=== PATIENT | female | born 1970 | race Hispanic/Latino ===

== ENCOUNTER 2020-01-03 23:10 | Emergency (ER) | payer SELFPAY ==
[~2020-01-03] VITALS: Ht 162.6 cm; Wt 63.5 kg
[2020-01-03] MEDS ORDERED: SODIUM CHLORIDE 0.9% 1000ML 1,000 ML IV STA (23:21)
[2020-01-03] MEDS ORDERED: KETOROLAC TROMETHAMINE 30 MG/ML VIAL IV STA (23:22)
[2020-01-03] MEDS ORDERED: FENTANYL CITRATE/PF 100MCG/2 ML INJ IV ONE (23:30)
[2020-01-03 23:32] LABS: BASOPHILS # (AUTO) 0.1 (0.0-0.1); BASOPHILS % 0.4 % (0.0-1.0); EOSINOPHILS # (AUTO) 0.1 (0.0-0.4); EOSINOPHILS % 0.8 % (0.0-6.0); HEMATOCRIT 41.8 % (34.2-44.1); HEMOGLOBIN 14.3 g/dL (12.0-16.0); LYMPHOCYTES # (AUTO) 5.6 (1.0-3.2); LYMPHOCYTES % 40.1 % (18.0-39.1); MEAN CORPUSCULAR HGB CONC 34.2 g/dL (31-35); MEAN CORPUSCULAR VOLUME 96.5 fL (81-99); MONOCYTES # (AUTO) 0.9 (0.2-0.8); MONOCYTES % 6.6 % (4.4-11.3); NEUTROPHILS # (AUTO) 7.2 (2.1-6.9); NEUTROPHILS % 51.5 % (38.7-80.0); PLATELET COUNT 347 x10e3/uL (140-360); RED BLOOD COUNT 4.33 x10e6/uL (3.6-5.1); RED CELL DISTRIBUTION WIDTH 13.7 % (11.7-14.4)
[2020-01-03 23:34] LABS: BILIRUBIN,URINE NEGATIVE (NEGATIVE); CLARITY,URINE CLOUDY (CLEAR); COLOR,URINE YELLOW (YELLOW); KETONES,URINE NEGATIVE (NEGATIVE); LEUKOCYTE ESTERASE ,URINE NEGATIVE (NEGATIVE); NITRITE,URINE NEGATIVE (NEGATIVE); PROTEIN,URINE DIPSTICK NEGATIVE (NEGATIVE); URINE UROBILINOGEN 0.2 mg/dL (0.2 - 1)
[2020-01-03] MEDS: ONDANSETRON HCL INJ 2MG/ML 2ML 2 MG/ML VIAL IV PRN ×2 (23:34→23:39)
[2020-01-03] MEDS ORDERED: KETOROLAC TROMETHAMINE 30 MG/ML VIAL ONE (23:36)
[2020-01-03] MEDS ORDERED: FENTANYL CITRATE/PF 100MCG/2 ML INJ ONE (23:36)
[2020-01-03] MEDS ORDERED: ONDANSETRON HCL INJ 2MG/ML 2ML 2 MG/ML VIAL ONE (23:36)
--- NOTE | 2020-01-03 23:36 | Emergency Department Note ---
History of Present Illnes History of Present Illness Chief Complaint: Abdominal Complaints History of Present Illness This is a 49 year old Other female Chief Complaint Comment 49 y/o female pt [id number] reports generalized abdominal pain following bowel movement approx 25 minutes. Denies history or chance of STD. Historian: Patient, Family Member Arrival Mode: Car Forming Department End Finder Required: No Onset (how long ago): minute(s) (25) Location: Lower pelvis Quality: sharp Radiation: Reports flank (Right) Severity: severe Onset quality: sudden Duration (how long): hour(s) (1) Timing of current episode: constant Progression: worsening Chronicity: new Context: Denies recent illness, Denies recent surgery Relieving factors: none Exacerbating factors: none Associated symptoms: Reports denies other symptoms Treatments prior to arrival: none Past Medical/Family History Physician Review I have reviewed the patient's past medical and family history. Any updates have been documented here. Past Medical History Recent Fever: No Clinical Suspicion of Infectio: No New/Unexplained Change in Ment: No Past Medical History: None Past Surgical History: None Social History Physically hurt or threatened: No Other Last Tetanus: OOD Review of Systems Review of Systems Constitutional: Reports no symptoms EENTM: Reports no symptoms Cardiovascular: Reports no symptoms Respiratory: Reports no symptoms Gastrointestinal: Reports as per HPI, Reports abdominal pain Genitourinary: Reports no symptoms Musculoskeletal: Reports no symptoms Integumentary: Reports no symptoms Neurological: Reports no symptoms Psychological: Reports no symptoms Endocrine: Reports no symptoms Hematological/Lymphatic: Reports no symptoms Physical Exam Related Data Allergies: Coded Allergies: No Known Drug Allergies (Verified Allergy, Mild, 04/10/10) Triage Vital Signs Vital Signs Date Time Temp Pulse Resp B/P (MAP) Pulse Ox O2 Delivery O2 Flow Rate FiO2 01/03/20 23:12 98.6 104 18 159/101 97 Room Air Vital signs reviewed: Yes Physical Exam CONSTITUTIONAL Constitutional: Present well-developed, Present well-nourished, Present distressed HENT HENT: Present normocephalic, Present atraumatic, Present oropharynx clear/moist, Present nose normal HENT L/R: Present left ext ear normal, Present right ext ear normal EYES Eyes: Reports PERRL, Reports conjunctivae normal NECK Neck: Present ROM normal PULMONARY Pulmonary: Present effort normal, Present breath sounds normal CARDIOVASCULAR Cardiovascular: Present regular rhythm, Present heart sounds normal, Present capillary refill normal, Present normal rate GASTROINTESTINAL Abdominal: Present soft, Present bowel sounds normal, Present tender (Diffuse) GENITOURINARY Genitourinary: Present exam deferred SKIN Skin: Present warm, Present dry MUSCULOSKELETAL Musculoskeletal: Present ROM normal NEUROLOGICAL Neurological: Present alert, Present oriented x 3, Present no gross motor or sensory deficits PSYCHOLOGICAL Psychological: Present mood/affect normal, Present judgement normal Results Laboratory Laboratory Laboratory Tests Test 01/03/20 23:16 Procedures 12 Lead ECG Interpretation ECG Interpretation : Forming Department End Finder: Interpreted by ED physician Date: Jan 03, 2020 Rhythm: sinus rhythm Rate: normal QRS axis: normal ST segments normal: Yes T waves normal: Yes Clinical Impression: non-specific ECG Assessment & Plan Medical Decision Making MDM 49 y.o F presents for diffuse low abdominal pain. Is not able to localize pain. She appears in distress. Initial diff is broad and includes appendicitis vs diverticulitis vs UTI vs pyelonephritis among others. Labs/CT show normal labs and 1. Markedly enlarged multi fibroid uterus, extending to the mid to upper abdomen with mass effect on bowel loops. Malignant transformation cannot be excluded. Recommend surgical consult. 2. Bilateral adnexal cystic lesions with septations on the right side. 3. Small volume ascites and trace right pleural effusion. Discussed options with patient and 2/2 her self pay status will transfer to [facility], accepted by Dr. Gaspar Reassessment Reassessment time: 23:36 Reassessment Pain improved after fentanyl Assessment & Plan Final Impression: (1) Uterine fibroid (2) Intractable pain Depart Disposition: TRANS TO OTHER [facility] Last Vital Signs Date Time Temp Pulse Resp B/P (MAP) Pulse Ox O2 Delivery O2 Flow Rate FiO2 01/03/20 23:12 98.6 104 18 159/101 97 Room Air Medications in the ED Ondansetron HCl 4 mg Q4H PRN IV NAUSEA AND VOMITING; Start 01/03/20 at 23:30; Stop 02/02/20 at 23:29 Sodium Chloride 1,000 ml @ 0 mls/hr Q0M STAT IV ; Start 01/03/20 at 23:21; Sto p 01/03/20 at 23:23; Status DC Fentanyl Citrate 50 mcg ONCE ONCE IV ; Start 01/03/20 at 23:30; Stop 01/03/20 at 23:31 Ketorolac Tromethamine 15 mg ONCE STAT IV ; Start 01/03/20 at 23:22; Stop 01/03/20 at 23:28; Status DC DINA DE LOS SANTOS MD Jan 03, 2020 23:36
[2020-01-03 23:42] LABS: AMORPHOUS SEDIMENT,URINE MANY (FEW); BACTERIA,URINE FEW /HPF; EPITHELIAL CELLS,URINE MODERATE /LPF; RBC,URINE 0-5 /HPF (0-5); WBC,URINE (MAN) 0-5 /HPF (0-5)
[2020-01-03 23:42] LABS: ALANINE AMINOTRANSFERASE 14 IU/L (0-55); ALBUMIN 4.1 g/dL (3.5-5.0); ALBUMIN/GLOBULIN RATIO 0.9 (0.8-2.0); ALKALINE PHOSPHATASE 75 IU/L (40-150); ANION GAP 15.5 mmol/L (8-16); BLOOD UREA NITROGEN 12 mg/dL (7-26); BUN/CREATININE RATIO 16 (6-25); CALCIUM 9.6 mg/dL (8.4-10.2); CARBON DIOXIDE 21 mmol/L (22-29); CHLORIDE 105 mmol/L (98-107); CREATININE, SERUM 0.76 mg/dL (0.57-1.11); EST GLOMERULAR FILTRATION RATE > 60 ML/MIN (60-); GLUCOSE 113 mg/dL (74-118); LIPASE 55 U/L (8-78); POTASSIUM 3.5 mmol/L (3.5-5.1); SODIUM 138 mmol/L (136-145)
[2020-01-03 23:48] LABS: HCG,QUANTITATIVE < 1.20 mIU/mL (0-10)
[2020-01-04] MEDS ORDERED: MORPHINE SULFATE INJ 4 MG/ML INJ 1ML IV PRN
[2020-01-04] MEDS ORDERED: IOPAMIDOL 370 MG/ML 200 ML INFUS..BTL INJ ONE (00:25)
[2020-01-04] MEDS ORDERED: SODIUM CHLORIDE 0.9% 50ML 50 ML ONE (00:25)
--- NOTE | 2020-01-04 01:11 | Diagnostic Imaging Report ---
EXAM: CT Abdomen and Pelvis WITH contrast INDICATION: ^Diffuse low pelvic pain COMPARISON: None. TECHNIQUE: Abdomen and pelvis were scanned utilizing a multidetector helical scanner from the lung base to the pubic symphysis after administration of IV contrast. Coronal and sagittal reformations were obtained. Dose modulation, iterative reconstruction, and/or weight based adjustment of the mA/kV was utilized to reduce the radiation dose to as low as reasonably achievable. Routine protocol was performed. Scan was performed when during portal venous phase. IV CONTRAST: 100 mL of Isovue-370 ORAL CONTRAST: Water COMPLICATIONS: None RADIATION DOSE: Total DLP: 376.33 mGy*cm Estimated effective dose: (DLP x 0.015 x size factor) mSv CTDIvol has been reviewed. It is below the limits set by the Radiation Protocol Committee (RPC). FINDINGS: LINES and TUBES: None. LOWER THORAX: Trace right pleural effusion. HEPATOBILIARY: No hepatic mass. Subcentimeter right hepatic lobe hypodensity (series 2, image 13) is too small to characterize. No biliary ductal dilation. GALLBLADDER: No radio-opaque stones or sludge. No wall thickening. SPLEEN: No splenomegaly. PANCREAS: No focal masses or ductal dilatation. ADRENALS: No adrenal nodules KIDNEYS/URETERS: Kidneys enhance symmetrically. No hydronephrosis. No renal mass. Left renal superior pole subcentimeter hypodensity is too small to characterize. No stones. GI TRACT: No abnormal distention, wall thickening, or evidence of bowel obstruction. Appendix is normal. PELVIC ORGANS/BLADDER: Markedly enlarged multi fibroid uterus the largest partially calcified mass, extends superiorly to the mid to upper abdomen, measuring approximately 14.8 x 12.9 cm. Peripherally enhancing left adnexal cystic lesion measuring 6.8 x 4.2 cm. Multiloculated peripherally enhancing right adnexal cystic lesion measures approximately 5.9 x 5.2 cm. LYMPH NODES: No lymphadenopathy. VESSELS: Collapse infrarenal IVC. PERITONEUM / RETROPERITONEUM: No free air. Small volume ascites. BONES: Unremarkable. SOFT TISSUES: Unremarkable. IMPRESSION: 1. Markedly enlarged multi fibroid uterus, extending to the mid to upper abdomen with mass effect on bowel loops. Malignant transformation cannot be excluded. Recommend surgical consult. 2. Bilateral adnexal cystic lesions with septations on the right side. 3. Small volume ascites and trace right pleural effusion. Signed by: Dr. Sage El MD on 01/04/2020 1:08 AM
--- NOTE | 2020-01-04 01:18 | NUR ---
ER AT PTS BS REVIEWING POC
--- NOTE | 2020-01-04 01:30 | NUR ---
transfer initiated to [facility] [employer] services
[2020-01-04] MEDS ORDERED: HYDROMORPHONE 1MG/1ML INJ IV PRN (02:00)
[2020-01-04 05:42] VITALS: BP 138/93
== END 2020-01-04 02:42 | disposition other institution (70) ==
LOC: ER 23:22
DX: R10.84 Generalized abdominal pain (principal); D25.9 Leiomyoma of uterus, unspecified
CPT/HCPCS: 36415; 74177; 80053; 81001; 83690; 84702; 85025; 93005; 99284; J1170; J1885; J2270; J2405; J3010; J7030; Q9967